=== PATIENT | female | born 1955 | race Caucasian/White ===

== ENCOUNTER 2021-02-22 05:44 | Inpatient (IN) | payer MEDICARE, BC ==
[~2021-02-22] VITALS: Ht 167.6 cm; Wt 65.9 kg
[2021-02-22 06:34] LABS: BASO % 0.2 % (0.0-2.0); EOS # 0.2 (0.0-0.7); EOS % 1.5 % (0-4.0); GRAN # 8.8 (1.4-6.5); GRAN % 64.3 % (42.2-75.2); HEMATOCRIT 40.1 % (37.0-47.0); HEMOGLOBIN 13.1 g/dl (12.5-16.0); LYMPH # 3.5 (1.2-3.4); LYMPH % 25.8 % (20.0-51.0); MEAN CELL VOLUME 86 fl (80.0-100.0); MEAN CORPUSCULAR HEMOGLOBIN 28 pg (27.0-31.0); MEAN CORPUSCULAR HGB CONC 33 g/dl (33.0-37.0); MEAN PLATELET VOLUME 9.1 fl (7.4-10.4); MONO # 1.1 (0.1-0.6); MONO % 7.8 % (1.7-9.3); PLATELET COUNT 291 K/mm3 (130-400); RED BLOOD COUNT 4.68 M/mm3 (4.10-5.30); REDCELL DISTRIBUTION WIDTH-CV 15.4 % (11.5-14.5)
[2021-02-22 07:05] LABS: ALBUMIN 3.8 gm/dL (3.4-4.8); CALCIUM 9.4 mg/dL (8.4-10.2); CREATININE, serum 0.8 mg/dL (0.57-1.11); POTASSIUM 4.2 mmol/L (3.5-4.5); TOTAL PROTEIN 7.3 gm/dL (6.2-8.1)
[2021-02-22 08:40] LABS: COLLECTION METHOD CATHETER
[2021-02-22 08:51] LABS: MUCOUS Present /lpf; PH 5 (5-8); SQUAMOUS EPITHELIAL 0-2 /hpf; URINE APPEARANCE Hazy; URINE BACTERIA Rare /hpf; URINE BILIRUBIN Negative (NEGATIVE); URINE BLOOD Negative (NEGATIVE); URINE COLOR Yellow; URINE GLUCOSE Negative (NEGATIVE); URINE KETONE Negative (NEGATIVE); URINE LEUKOCYTE ESTERASE Negative (NEGATIVE); URINE NITRATE Negative (NEGATIVE); URINE PROTEIN(semi-quant) 1+ (NEGATIVE); URINE UROBILINOGEN Negative (NEGATIVE)
[2021-02-22] MEDS ORDERED: ZOCOR 20MG20 MG PO (09:42)
[2021-02-22] MEDS ORDERED: ROXICODONE 55 MG/TAB PO (09:43)
[2021-02-22] MEDS ORDERED: CORTEF 10MG TAB10 MG PO (09:44)
[2021-02-22] MEDS ORDERED: CORTEF5 MG PO (09:44)
[2021-02-22] MEDS ORDERED: EUTHYROX88 MCG PO (09:45)
[2021-02-22] MEDS ORDERED: ARICEPT 5MG PO (09:45)
[2021-02-22] MEDS ORDERED: NAMENDA5 MG PO (09:46)
[2021-02-22] MEDS ORDERED: PRILOSEC 20MG20 MG PO (09:46)
[2021-02-22] MEDS ORDERED: K-DUR20 MEQ PO (09:47)
[2021-02-22] MEDS ORDERED: COMBIGAN 0.2%-0.5 ML OU (09:47)
[2021-02-22] MEDS ORDERED: ASPIRIN 81M81 MG/TA2 PO (09:48)
[2021-02-22] MEDS ORDERED: CVS SPECTRAVIT1 EA15 PO (09:48)
[2021-02-22] MEDS ORDERED: OSCAL 500 TAB500 MG PO (09:49)
[2021-02-22] MEDS ORDERED: GLUCOSAMINE & C1 CA2 PO (09:49)
[2021-02-22] MEDS ORDERED: VITAMIN C500 MG PO (09:49)
--- NOTE | 2021-02-22 14:57 | NUR ---
SW met with patient at b/s but this worker was unable to complete assessment as patient was difficult to understand and hear. SW contacted pt's , Lg (with pt's consent) and he confirmed that he is pt's primary feller operator except that he has [facility] that provide patient with bathing. Lg can be reached at [phone]. shared with this worker that they spend part of the year in [place], where they have a home, and the rest of the year in [place], where they just purchased a [place]. They have a daughter in [place] that assists them and they have a son whose in the [facility] and out of [facility]. They have a handicap accessible van and a sofay lift. They also have a hospital bed they obtained through insurance but its in [place]. The hospital they have in [place] was given to them and he reports its a bit too tall for patient. She also has a reclining wheelchair. Lg states pt is able to use her left hand but she has little to no use on right side. She is able to talk but its difficul to hear and/or understand her. He gets her meds from [facility] in [place] and from [facility] [employer] in [place]. Patient confirmed that is MPOA. SW will continue to follow patient for d/c needs. *D/C Plan: d/c home with
[2021-02-22 15:41] VITALS: BP 130/55; PULSE 58; TEMP 97.4
--- NOTE | 2021-02-22 19:10 | NUR ---
Darling called and left a msg with the araceli nicole to call back for consult regarding a brace
[2021-02-22 20:00] VITALS: BP 118/46; PULSE 102
[2021-02-22 23:44] VITALS: BP 125/26; PULSE 102; TEMP 98.3
[2021-02-23] VITALS (67 sets, daily range): BP systolic 82–133; BP diastolic 55–63; PULSE 120–152; TEMP 98.9–101.6; O2SAT 35–100
--- NOTE | 2021-02-23 05:48 | NUR ---
AT 0415 PT NOTED TO BE TACHCYCARDIC, HOSPITALIST INFORMED, CT SCAN OF CHEST, EKG, LABS ORDERED. PT UNABLE TO VERBALIZE AND/OR EXPRESS S/S.NO OBVIOUS FACIAL GRIMACE OR BODY DISCOMFORT MANNERISMS NOTED. PT ALSO NOTED TO BE DESATTING ON ROOM AIR, THIS NURSE PLACED PT ON 3.5L OF 02 NC WITH A SATURATION BETWEEN 93 AND 95. PT REPOSITIONED, HOB ELEVATED AT 30 DEGREES. NURSE WILL CONTINUE TO F/U AND MONITOR PT.
[2021-02-23 07:36] LABS: ARTERIAL BLD GAS O2 SATURATION 83.3 % (92-100); ARTERIAL BLD GAS TCO2 CT 18.1; ARTERIAL BLOOD GAS BASE EXCESS -4.4 (-2-2); ARTERIAL BLOOD GAS HCO3 17.4 meq/L (22-26); ARTERIAL BLOOD GAS PCO2 24.3 mmHg (35-45); ARTERIAL BLOOD GAS PO2 44.7 mmHg (80-100); ARTERIAL BLOOD GAS pH 7.47 (7.35-7.45)
--- NOTE | 2021-02-23 08:00 | NUR ---
REPORT CALLED TO [facility] AT THIS TIME. ASK ABOUT BIPAP SETTING WILL CLARIFY WITH RT
[2021-02-23 09:36] LABS: HEMOGLOBIN 11.4 g/dl (12.5-16.0); MEAN CELL VOLUME 87 fl (80.0-100.0); MEAN CORPUSCULAR HEMOGLOBIN 28 pg (27.0-31.0); MEAN CORPUSCULAR HGB CONC 32 g/dl (33.0-37.0); MEAN PLATELET VOLUME 9.1 fl (7.4-10.4); PLATELET COUNT 251 K/mm3 (130-400); REDCELL DISTRIBUTION WIDTH-CV 15.2 % (11.5-14.5)
[2021-02-23 09:52] LABS: HEMATOCRIT 35.5 % (37.0-47.0)
[2021-02-23 09:55] LABS: CALCIUM 7.8 mg/dL (8.4-10.2); CREATININE, serum 0.84 mg/dL (0.57-1.11)
[2021-02-23 10:02] LABS: ARTERIAL BLD GAS O2 SATURATION 99.1 % (92-100); ARTERIAL BLD GAS TCO2 CT 14.9; ARTERIAL BLOOD GAS BASE EXCESS -8.5 (-2-2); ARTERIAL BLOOD GAS HCO3 14.2 meq/L (22-26); ARTERIAL BLOOD GAS pH 7.43 (7.35-7.45)
[2021-02-23 10:03] LABS: ARTERIAL BLOOD GAS PO2 216.7 mmHg (80-100)
[2021-02-23 10:04] LABS: BAND 10 % (0-10); EOSINOPHIL 2 % (0-4); LYMPHOCYTE 30 % (20.0-51.0); MYELOCYTE 1 % (0-0); NEUTROPHILS 53 % (42.0-75.2); PLATELET ESTIMATE NORMAL (NORMAL)
[2021-02-23 10:26] LABS: TROPONIN-I 1.513 ng/mL (0.00-0.033)
--- NOTE | 2021-02-23 10:37 | NUR ---
ASSISTED WITH INTUBATION OF PATIENT WITH A 7.5 ET 22@TEETH, ENDTIDAL YELLOW, BILATERAL BREATH SOUNDS HEARD, CHEST XRAY OBTAINED.
--- NOTE | 2021-02-23 11:12 | NUR ---
MITCH spoke with patient's daughter, Gisela Pagan ([phone]). She lives in [place] and recently encouraged her father to move to [place] so she could assist with patient's care. Gisela confirmed much of what her father told this worker yesterday but went on to say he "needs a lot of help" and services. She stated that he told her he is afraid he wouldn't qualify for any help because he thinks he makes too much money. This worker assured Gisela that we would have that conversation and address her concerns. MITCH will continue to follow.
--- NOTE | 2021-02-23 11:18 | NUR ---
Patient coded and was transferred to ICU. Recd call from Jillian Fernandez that patients dtr, Gisela, has been trying to reach this worker by phone with no success. This worker attempted to call Gisela and the call went to voice mail. SW left message to call. MITCH will call her again until contact is made.
--- NOTE | 2021-02-23 11:28 | NUR ---
Call placed to [facility]. Patient is not a candidate for donation due to hx of leukemia & dementia. Confirmation # [id number]. Awaiting family readiness for home information
--- NOTE | 2021-02-23 11:29 | NUR ---
0815- PT brought down from medical floor due to increased oxygen needs and high heart rate. PT hooked up to ICU monitoring. PT HR is 152 on arrival, low BP. Patient placed in trendelenburg position. 0835- jaskaran and dr. Barton bedside. 0842- EKG performed. PT showing in Aflutter. PT placed on zoll monitor. Adenosine 6mg pushed as ordered. PT HR decreased to 120 the increased back to 150s. 0847- 12mg adenosine given as ordered. HR down to 80 then quickly raises to 140s. 0848 - Ativan ordred and given to PT. 200 J synced shocke given to PT. Dr. Maldonado notified of consult. 0853- 10mg cardizem given per Dr. Holman 0859- Time out performed, RN, RT, Dr. Holman, bedside. PT intubated PT intubated, 22 at teeth, color change noted, breath sounds auscultated bilaterally. Vent settings = 400tv, RR 22, PEEP 5, Fio2 100%. 0903- OG placed 60cm at the teeth, 16fr. 0911- Dr. Jack placed a left subclavian central line. 0915- 22g started in right foot by JOAQUIN Coreas 0922- Adenosine 6mg push per Dr. Maldonado pushed. PT HR SR 80. 0922- No pulse found, CPR initiated.
--- NOTE | 2021-02-23 12:48 | NUR ---
1107-With confirmations of 2 RNs, Time of .
--- NOTE | 2021-02-23 12:57 | NUR ---
Mortuary Supervisor Looping. PT body discharged to at 8707
== END 2021-02-23 12:58 | disposition expired | DRG 85 ==
LOC: COL.ER 05:44 → MEDICAL 09:04 → ICU 09:04
PROVIDERS: Emergency Medicine; Physician Assistant; ADMIT Student in an Organized Health Care Education/Training Program
PROC: 5A09357 Assistance with Respiratory Ventilation, Less than 24 Consecutive Hours, Continuous Positive Airway Pressure (ICD-10-PCS; 2021-02-22)
PROC: 2W38X1Z Immobilization of Right Upper Extremity using Splint (ICD-10-PCS; 2021-02-22)
PROC: 03HY32Z Insertion of Monitoring Device into Upper Artery, Percutaneous Approach (ICD-10-PCS; principal; 2021-02-23)
PROC: 5A1935Z Respiratory Ventilation, Less than 24 Consecutive Hours (ICD-10-PCS; 2021-02-23)
PROC: 0BH17EZ Insertion of Endotracheal Airway into Trachea, Via Natural or Artificial Opening (ICD-10-PCS; 2021-02-23)
PROC: 5A2204Z Restoration of Cardiac Rhythm, Single (ICD-10-PCS; 2021-02-23)
PROC: 5A12012 Performance of Cardiac Output, Single, Manual (ICD-10-PCS; 2021-02-23)
PROC: 02HV33Z Insertion of Infusion Device into Superior Vena Cava, Percutaneous Approach (ICD-10-PCS; 2021-02-23)
DX: S06.2X0A Diffuse traumatic brain injury without loss of consciousness, initial encounter (principal); J69.0 Pneumonitis due to inhalation of food and vomit; J96.01 Acute respiratory failure with hypoxia; G93.41 Metabolic encephalopathy; S42.351A Displaced comminuted fracture of shaft of humerus, right arm, initial encounter for closed fracture; I69.351 Hemiplegia and hemiparesis following cerebral infarction affecting right dominant side; C95.90 Leukemia, unspecified not having achieved remission; I48.92 Unspecified atrial flutter; Z51.5 Encounter for palliative care; Z66 Do not resuscitate; F03.90 Unspecified dementia, unspecified severity, without behavioral disturbance, psychotic disturbance, mood disturbance, and anxiety; K21.9 Gastro-esophageal reflux disease without esophagitis; E03.9 Hypothyroidism, unspecified; Z20.822 Contact with and (suspected) exposure to COVID-19; I46.9 Cardiac arrest, cause unspecified; I95.9 Hypotension, unspecified; E27.9 Disorder of adrenal gland, unspecified; J32.9 Chronic sinusitis, unspecified; E78.5 Hyperlipidemia, unspecified; W06.XXXA Fall from bed, initial encounter; Y92.003 Bedroom of unspecified non-institutional (private) residence as the place of occurrence of the external cause; Z79.891 Long term (current) use of opiate analgesic; Z79.82 Long term (current) use of aspirin
CPT/HCPCS: OP; 99223-AI; A4314; C1751; G0378; J0153; J0330; J2250; J2270; J2370; J2405; J2704; J7030; J7050